=== PATIENT | female | born 1930 | race Caucasian/White ===

== ENCOUNTER 2016-03-06 19:42 | Emergency (ER) | payer MEDICARE ==
[2016-03-06] MEDS ORDERED: MORPHINE SULFATE 2 MG INJ IV ONE (19:56)
[2016-03-06] MEDS ORDERED: Sodium Chloride 0.9% 1000 ML 1,000 ML IV SCH (20:00)
[2016-03-06] MEDS ORDERED: MORPHINE SULFATE 2 MG INJ ONE (20:12)
[2016-03-06] MEDS ORDERED: Sodium Chloride 0.9% 1000 ML 1,000 ML ONE (20:12)
[2016-03-06 20:29] LABS: BASOPHIL % 0.2 % (0.0-0.4); Eosinophil % 1.6 % (0.00-5.0); Granulocytes % 72.2 % (36.0-66.0); Lymphocytes % 16.8 % (24.0-44.0); Monocytes % 9.2 % (0.0-12.0); Platelet Count 296 K/mm3 (150-450); Red Blood Count 3.09 M/mm3 (4.1-5.4); Red Cell Distribution Width 14.3 % (11.5-14.0)
--- NOTE | 2016-03-06 20:45 | ERPHSYRPT ---
- History of Present Illness Time Seen by Provider: 03/06/16 19:54 Source: patient, family (son, daughter, granddaughter), EMS, residential records Patient Subjective Stated Complaint: PT HAS RECTAL PAIN AND BLEEDING. PER [facility] STAFF PT HAS HAD BRIGHT RED BLOOD TODAY FROM RECTAL MASS Triage Nursing Assessment: PT ALERT AND ORIENTED. ANSWERS QUESTIONS APPROP. SKIN PALE WARM AND DRY. RESPIRATIONS NONLABORED. LUNGS CTA. PT C/O RECTAL PAIN. DARK RED BLOOD NOTED FROM DARK MASS IN RECTAL AREA. SMALL OPEN AREAS TO TOES WITH BROWN DISCOLORATION TO LOWER LEGS. Physician History: CC: rectal bleeding Hx: 86 y/o patient of Dr Adriel Ramires sent form [facility]. She was recently in the hospital and diagnosed with rectal melanoma. The family was told this is not treatable and they request comfort care. She is at [facility]. Today she had more rectal bleeding from the mass and was sent to ER for evaluation. Pt denies any pain. She has hx of lewy body dementia. No vomiting or fever. She did complain of cough. Timing/Duration: today Severity: moderate Allergies/Adverse Reactions: aspartame Allergy (Mild, Verified 03/06/16 20:02) Nausea and Vomiting prednisone Allergy (Verified 03/06/16 20:02) STOPPED BREATHING Home Medications: Carbidopa/Levodopa [Carbidopa-Levo 25-100 Tab] 1 each PO TIDWMEALS 02/03/16 [ History] Multivits-Min/Iron/FA/Lutein [Centrum Silver Women Tablet] 1 each PO DAILY 02/02 [History] Vitamin B Complex 1 each PO DAILY 02/03/16 [History] Furosemide 20 mg [Lasix 20 mg] 20 mg PO DAILY 03/06/16 [History] Hydrocodone Bit/Acetaminophen [Hydrocodon-Acetaminophen 5-325] 1 each PO Q4H PRN PRN 03/06/16 [History] Metoprolol Tartrate 25 mg [Lopressor 25MG Tab] 25 mg PO BID 03/06/16 [ History] Potassium Chloride 10 Meq Tab* [Klor Con 10 MEQ] 10 meq PO DAILY 03/06/16 [ History] Quetiapine Fumarate [Seroquel] 100 mg PO HS 03/06/16 [History] Simvastatin 10 mg PO HS 03/06/16 [History] Hx Tetanus, Diphtheria Vaccination/Date Given: No Hx Influenza Vaccination/Date Given: Yes Hx Pneumococcal Vaccination/Date Given: Yes Immunizations Up to Date: Yes - Review of Systems Constitutional: Fatigue, Malaise, Weakness, No Fever Eyes: No Symptoms Ears, Nose, & Throat: No Symptoms Respiratory: Cough, No Dyspnea Cardiac: No Chest Pain Abdominal/Gastrointestinal: Other (rectal bleeding), No Abdominal Pain, No Vomiting All Other Systems: Reviewed and Negative - Past Medical History Pertinent Past Medical History: Yes Neurological History: Dementia, Other ENT History: Glaucoma Cardiac History: Arrhythmia, Congestive Heart Failure, Hypertension, Myocardial Infarction ([place]), Other Respiratory History: CHF, Pneumonia Endocrine Medical History: No Pertinent History Musculoskeletal History: Arthritis, Osteoarthritis GI Medical History: Hernia, Other History: Other Psycho-Social History: Anxiety Female Reproductive Disorders: Ovarian Cancer, Uterine Cancer Other Medical History: Chronic headache, Frequent kidney infections,anemia and. has AICD/pacemaker left upper chest, venous stasis ulcers to lower legs. - Past Surgical History Past Surgical History: Yes Neuro Surgical History: No Pertinent History Cardiac: Cardiac Catheterization, Pacemaker Respiratory: No Pertinent History Gastrointestinal: No Pertinent History Genitourinary: No Pertinent History Musculoskeletal: Other Female Surgical History: Hysterectomy Other Surgical History: left shoulder rotator cuff. - Social History Smoking Status: Never smoker Exposure to second hand smoke: Yes Drug Use: none Patient Lives Alone: No - Female History Hx Last Menstrual Period: POST Hx Now: No - Nursing Vital Signs Nursing Vital Signs: Initial Vital Signs Temperature 97.7 F Pulse Rate 130 Respiratory Rate 22 Blood Pressure 119/60 Pain Intensity 4 - Physical Exam General Appearance: alert Eye Exam: PERRL/EOMI Ears, Nose, Throat Exam: dry mucous membranes Neck Exam: supple Respiratory Exam: diminished breath sounds Cardiovascular Exam: regular rate/rhythm Gastrointestinal/Abdomen Exam: soft, No tenderness, No distention Rectal Exam: other (large black necrotic rectal mass partially extruding from rectum. Minimal bleeding.) Extremity Exam: normal inspection Neurologic Exam: alert, cooperative Skin Exam: warm, dry, No rash SpO2 Interpretation: normal SpO2: 96 Oxygen Delivery: Room Air - Course Nursing assessment & vital signs reviewed: Yes - Radiology Exams AAS X-ray Interpretation: Reviewed by me (new right pleural effusion, no obstr) Ordered Tests: Active Orders 24 hr Category Date Time Status Savage [Catheter-Glouster Savage] STAT Care 03/06/16 19:59 Active IV Insertion STAT Care 03/06/16 19:54 Active OBSTR/ACUTE ABDOMEN SERIES Stat Exams 03/06/16 19:56 Taken BLOOD CULTURE Stat Lab 03/06/16 20:15 Received CBC W DIFF Stat Lab 03/06/16 20:15 Completed CMP Stat Lab 03/06/16 20:15 Completed CULTURE,URINE Stat Lab 03/06/16 20:45 Received Lactic Acid Urgent Lab 03/06/16 20:20 Completed PROTIME WITH INR Stat Lab 03/06/16 20:15 Completed PTT Stat Lab 03/06/16 20:15 Completed UA W/ MICROSCOPIC Stat Lab 03/06/16 20:29 Completed Medication Summary Generic Name Dose Route Start Last Admin Trade Name Freq PRN Reason Stop Dose Admin Sodium Chloride 1,000 mls @ 50 mls/hr 03/06/16 20:00 03/06/16 20:13 Sodium Chloride 0.9% 1000 Ml IV 04/05/16 19:59 50 mls/hr .Q20H LISA Administration Discontinued Medications Generic Name Dose Route Start Last Admin Trade Name Freq PRN Reason Stop Dose Admin Sodium Chloride Confirm 03/06/16 20:12 Sodium Chloride 0.9% 1000 Ml Administered 03/06/16 20:13 Dose 1,000 mls @ ud .ROUTE .STK-MED ONE Morphine Sulfate 2 mg 03/06/16 19:56 03/06/16 20:13 Morphine Sulfate 2 Mg Inj IV 03/06/16 19:57 2 mg STAT ONE Administration Morphine Sulfate Confirm 03/06/16 20:12 Morphine Sulfate 2 Mg Inj Administered 03/06/16 20:13 Dose 2 mg .ROUTE .STK-MED ONE Lab/Rad Data: Laboratory Result Diagrams 03/06/16 20:15 03/06/16 20:15 Laboratory Results 03/06/16 03/06/16 03/06/16 Range/Units 20:29 20:20 20:15 WBC (4.0-10.5) K/mm3 RBC (4.1-5.4) M/mm3 Hgb (12.0-16.0) gm/dl Hct (35-47) % MCV (78-100) fl MCH (26-32) pg MCHC (32-36) g/dl RDW (11.5-14.0) % Plt Count (150-450) K/mm3 MPV (6-9.5) fl Gran % (36.0-66.0) % Lymphocytes % (24.0-44.0) % Monocytes % (0.0-12.0) % Eosinophils % (0.00-5.0) % Basophils % (0.0-0.4) % Basophils # (0-0.4) INR 1.24 (0.8-3.0) PTT 22.2 L (25.3-37.0) SECONDS Sodium (136-145) mEq/L Potassium (3.5-5.1) mEq/L Chloride (98-107) mEq/L Carbon Dioxide (21-32) mEq/L Anion Gap (5-15) MEQ/L BUN (9-20) mg/dL Creatinine (0.55-1.30) mg/dl Estimated GFR ML/MIN Glucose (70-110) MG/DL Lactic Acid 1.8 (0.4-2.0) Calcium (8.5-10.1) mg/dL Total Bilirubin (0.2-1.0) mg/dL AST (15-37) U/L ALT (12-78) U/L Alkaline Phosphatase (46-116) U/L Serum Total Protein (6.4-8.2) gm/dL Albumin (3.4-5.0) g/dL Ur Collection Type CATH Urine Color YELLOW (YELLOW) Urine Appearance CLOUDY (CLEAR) Urine pH 7.0 (5-6) Ur Specific [place] 1.020 (1.005-1.025) Urine Protein NEGATIVE (Negative) Urine Glucose (UA) NEGATIVE (NEGATIVE) mg/dL Urine Ketones NEGATIVE (NEGATIVE) Urine Nitrite POSITIVE (NEGATIVE) Urine Bilirubin NEGATIVE (NEGATIVE) Urine Urobilinogen 1 (0-1) mg/dL Urine WBC (Auto) NEGATIVE (NEGATIVE) Urine RBC (Auto) NEGATIVE (0-5) Marcel/ul Urine Microscopic RBC 5-10 (0-2) /HPF Urine Microscopic WBC 10-15 (0-5) /HPF Ur Epithelial Cells FEW (FEW) /HPF Amorphous Crystals MODERATE (NEGATIVE) /HPF Urine Bacteria PACKED (NEGATIVE) /HPF Hyaline Casts 0-2 (0-2) /LPF Urine Mucus MODERATE (NEGATIVE) /HPF Specimen Received 03/06/162029 ABO Group Rh Factor Antibody Screen (NEGATIVE) 03/06/16 03/06/16 03/06/16 Range/Units 20:15 20:15 20:15 WBC 9.0 (4.0-10.5) K/mm3 RBC 3.09 L (4.1-5.4) M/mm3 Hgb 9.6 L (12.0-16.0) gm/dl Hct 30.6 L (35-47) % MCV 99.0 (78-100) fl MCH 31.0 (26-32) pg MCHC 31.4 L (32-36) g/dl RDW 14.3 H (11.5-14.0) % Plt Count 296 (150-450) K/mm3 MPV 9.0 (6-9.5) fl Gran % 72.2 H (36.0-66.0) % Lymphocytes % 16.8 L (24.0-44.0) % Monocytes % 9.2 (0.0-12.0) % Eosinophils % 1.6 (0.00-5.0) % Basophils % 0.2 (0.0-0.4) % Basophils # 0.02 (0-0.4) INR (0.8-3.0) PTT (25.3-37.0) SECONDS Sodium 141 (136-145) mEq/L Potassium 4.3 (3.5-5.1) mEq/L Chloride 107 (98-107) mEq/L Carbon Dioxide 23.8 (21-32) mEq/L Anion Gap 14.0 (5-15) MEQ/L BUN 23 H (9-20) mg/dL Creatinine 1.68 H (0.55-1.30) mg/dl Estimated GFR 31 ML/MIN Glucose 162 H (70-110) MG/DL Lactic Acid (0.4-2.0) Calcium 8.4 L (8.5-10.1) mg/dL Total Bilirubin 0.3 (0.2-1.0) mg/dL AST 26 (15-37) U/L ALT < 6 L (12-78) U/L Alkaline Phosphatase 50 (46-116) U/L Serum Total Protein 6.1 L (6.4-8.2) gm/dL Albumin 2.1 L (3.4-5.0) g/dL Ur Collection Type Urine Color (YELLOW) Urine Appearance (CLEAR) Urine pH (5-6) Ur Specific [place] (1.005-1.025) Urine Protein (Negative) Urine Glucose (UA) (NEGATIVE) mg/dL Urine Ketones (NEGATIVE) Urine Nitrite (NEGATIVE) Urine Bilirubin (NEGATIVE) Urine Urobilinogen (0-1) mg/dL Urine WBC (Auto) (NEGATIVE) Urine RBC (Auto) (0-5) Marcel/ul Urine Microscopic RBC (0-2) /HPF Urine Microscopic WBC (0-5) /HPF Ur Epithelial Cells (FEW) /HPF Amorphous Crystals (NEGATIVE) /HPF Urine Bacteria (NEGATIVE) /HPF Hyaline Casts (0-2) /LPF Urine Mucus (NEGATIVE) /HPF Specimen Received ABO Group A Rh Factor NEGATIVE Antibody Screen NEGATIVE (NEGATIVE) - Progress Progress Note: 03/06/16 20:44 Family has good understanding of the melanoma and poor prognosis. They state they want no CPR, comfort care, no heroics, no blood transfusion, and antibiotics only only if beneficial. The patient herself signed a POST form in early February with the same requests but the form was incompletely executed. A new POST form has been discussed with pt and family and all are in agreement and it has been signed but the son who is her POA. 03/06/16 21:56 Discussed test results with family. They do not want blood transfusion, agressive treatment, nor abtx at this time. Called Dr Tirso Ramires. Will return to [place] and consider hospice in near future. Prognosis poor and family understands. Counseled pt/family regarding: lab results, diagnosis, need for follow-up, rad results - Departure Time of Disposition: 21:57 Departure Disposition: Extended Care Facility Clinical Impression: Malignant melanoma of rectum Condition: Poor Critical Care Time: No Referrals: ISELA RAMIRES [Primary Care Provider] - Instructions: Rectal Bleed Additional Instructions: Return to [facility] for comfort care. Consider hospice consult in AM. Call Dr Ramires/Tirso for further orders as needed. See executed POST form.
[2016-03-06 20:48] LABS: PTT 22.2 SECONDS (25.3-37.0)
[2016-03-06 20:50] LABS: Bacteria PACKED /HPF (NEGATIVE); COMPLETE URINE MICROSCOPIC? YES; Collection Type CATH; Epithelial Cells FEW /HPF (FEW); Hyaline Casts 0-2 /LPF (0-2); Mucus MODERATE /HPF (NEGATIVE)
[2016-03-06 20:52] LABS: PROTIME 13.8 SECONDS (9.95-12.35)
[2016-03-06 20:55] LABS: ALBUMIN 2.1 g/dL (3.4-5.0); ALKALINE PHOSPHATASE 50 U/L (46-116); BILIRUBIN,TOTAL 0.3 mg/dL (0.2-1.0); BLOOD UREA NITROGEN 23 mg/dL (9-20); CHLORIDE 107 mEq/L (98-107); Carbon Dioxide 23.8 mEq/L (21-32); Glucose 162 MG/DL (70-110); INR 1.24 (0.8-3.0); Potassium 4.3 mEq/L (3.5-5.1); SGOT/AST 26 U/L (15-37); SODIUM 141 mEq/L (136-145); Total Protein 6.1 gm/dL (6.4-8.2)
[2016-03-06 21:04] LABS: SGPT/ALT < 6 U/L (12-78)
[2016-03-06 23:05] VITALS: BP 129/72; PULSE 126; O2SAT 92
--- NOTE | 2016-03-07 09:01 | XRAY ---
Indication: Cough. Rectal mass. Comparison: Chest exam of February 03, 2016 2 views of the abdomen demonstrates mild scattered colonic fecal debris and scattered vascular calcifications. No focal bowel dilatation, obstruction, or free air. Solid organs unremarkable. Osseous structures intact with osteopenia, levoscoliosis, and spinal degenerative spondylosis. Single AP chest demonstrates interval worsening right base infiltrate/atelectasis/effusion now occupying at least 50% of the hemithorax. New tiny left effusion. The heart is not enlarged. Stable left-sided dual-lead pacemaker. Bony thorax intact again with osteopenia and degenerative changes. Impression: 1. Fecal stasis without obstruction. 2. Worsening right lung base infiltrate/atelectasis/effusion with new tiny left effusion.
== END 2016-03-06 23:00 ==
LOC: ED 19:42
DX: C78.5 Secondary malignant neoplasm of large intestine and rectum (principal); Z79.899 Other long term (current) drug therapy; I50.9 Heart failure, unspecified; I10 Essential (primary) hypertension
CPT/HCPCS: 36000; 36415; 51702; 74022; 80053; 81000; 83605; 85025; 85610; 85730; 86850; 86900; 86901; 87040; 87077; 87086; 87186; 96360; 96361; 96374; 99283; J2270